=== PATIENT | male | born 1965 | race Two or more races ===

== ENCOUNTER → 2020-03-16 15:08 | Outpatient (BNVA) | payer OTHER, MEDICARE, SELFPAY | PROVIDERS: PCP Student in an Organized Health Care Education/Training Program; Visit Provider Urology | DX: Z76.89 Persons encountering health services in other specified circumstances (principal) ==

== ENCOUNTER → 2020-09-28 13:22 | Outpatient (BNVA) | payer OTHER, MEDICARE, SELFPAY | PROVIDERS: PCP Student in an Organized Health Care Education/Training Program; Visit Provider Nurse Practitioner Family ==

== ENCOUNTER 2020-10-20 12:24 | Outpatient (REF) | payer OTHER, MEDICARE, SELFPAY ==
--- NOTE | ~2020-10-20 | XR_ITS ---
EXAMINATION: XR CHEST CLINICAL INFORMATION: Acute lower respiratory tract infection COMPARISON: Previous chest x-rays most recent May 2019 TECHNIQUE: 2 views of the chest were obtained. FINDINGS: The cardiac and mediastinal contours are stable. The lungs are clear. There is no pleural effusion or pneumothorax. There is mild curvature of the midthoracic spine to the right. XR/XR chest 2V IMPRESSION: No evidence of pneumonia.
[2020-10-20 13:23] LABS: Hematocrit 48.9 % (42-52); Hemoglobin 17.1 g/dl (14.0-18.0); Mean Corpuscular Hemoglobin 33.4 pg (27.0-33.0); Mean Corpuscular Volume 95.5 fL (80-98); Mean Platelet Volume 9.6 fL (9.4-12.4); Platelet Count 257 X10*3/uL (160-400); Red Blood Count 5.12 X10*6/uL (4.60-5.80); Red Cell Distribution Width 11.9 % (11.0-16.0); White Blood Count 6.5 X10*3/uL (4.8-10.8)
[2020-10-20 13:50] LABS: Alanine Aminotransferase 61 U/L (0-40); Albumin Level 4.5 g/dL (3.5-5.0); Alkaline Phosphatase 50 U/L (39-117); Anion Gap 13 (12-20); Aspartate Amino Transferase 60 U/L (5-37); Blood Urea Nitrogen 14 mg/dL (9-16); Calcium 9.7 mg/dL (8.4-10.2); Carbon Dioxide 25 mmol/L (22-29); Chloride 104 mmol/L (96-108); Estimated Glomerular Filt Rate > 60; Glucose Random 104 mg/dL (60-115); Potassium 4.4 mmol/L (3.3-5.1); Sodium 138 mmol/L (135-145); Total Protein 7.9 g/dL (6.5-8.0)
== END 2020-10-20 12:25 | disposition home or self-care (01) ==
LOC: HO.LAB 12:24
PROVIDERS: Absent Provider Emergency Medicine; PCP Student in an Organized Health Care Education/Training Program; Visit Provider Nurse Practitioner Family
DX: Z12.11 Encounter for screening for malignant neoplasm of colon (principal); J22 Unspecified acute lower respiratory infection
CPT/HCPCS: 36415; 71046; 80053; 85027

== ENCOUNTER → 2020-10-28 14:13 | Outpatient (BNVA) | payer OTHER, MEDICARE, SELFPAY | PROVIDERS: PCP Student in an Organized Health Care Education/Training Program; Visit Provider Nurse Practitioner Family ==

== ENCOUNTER 2021-02-04 14:11 | Outpatient (REF) | payer OTHER, MEDICARE, SELFPAY ==
--- NOTE | ~2021-02-04 | CT_ITS ---
EXAMINATION: CT ABDOMEN AND PELVIS WITHOUT CONTRAST CLINICAL INFORMATION: Lower back pain. Question kidney stone. COMPARISON: None TECHNIQUE: Multidetector volumetric imaging was performed from the superior aspect of the liver through the pubic symphysis. Sagittal and coronal reformatted images were obtained on the technologist's workstation. This CT examination was performed using dose optimization techniques as appropriate, variously including the following: *Automated exposure control *Adjustment of mA and/or kV according to patient size (this includes techniques or standardized protocols for targeted exams where dose is matched to indication/reason for exam; i.e. extremities or head) *Use of iterative reconstruction technique DLP: 471 mGy-cm FINDINGS: LUNG BASES: The visualized lung bases are unremarkable. LIVER, GALLBLADDER, AND BILIARY TREE: The liver is normal in size, shape, and attenuation. No focal hepatic lesion or biliary ductal dilatation is present. The gallbladder is unremarkable with no evidence of radiopaque gallstones, gallbladder wall thickening, or obvious pericholecystic inflammatory changes. PANCREAS: Unremarkable. SPLEEN: Unremarkable. ADRENAL GLANDS: Unremarkable. KIDNEYS AND URETERS: The kidneys are normal in size, shape, and attenuation. No hydronephrosis, hydroureter, or calculi seen. There is a 1 cm low-attenuation lesion in the posterior upper pole the right kidney probably representing a cyst. BLADDER: Unremarkable. GASTROINTESTINAL TRACT: The small and large bowel are unremarkable. The appendix is unremarkable. ABDOMINAL WALL: There is a small umbilical hernia containing fat. LYMPH NODES: Normal. VASCULAR: Unremarkable. PELVIC VISCERA: Unremarkable. OSSEOUS STRUCTURES: There is an L1 vertebral body compression fracture. Versus a gallstone. There is degenerative spondylosis at T12-L1. CT/CT abdomen pelvis wo con IMPRESSION: No stone seen. Small right renal cyst. L1 vertebral body compression fracture/Schmorl's node.
== END 2021-02-04 14:12 | disposition home or self-care (01) ==
LOC: HO.CT 14:11
PROVIDERS: Absent Provider Student in an Organized Health Care Education/Training Program; PCP Student in an Organized Health Care Education/Training Program; Visit Provider Emergency Medicine
DX: R10.9 Unspecified abdominal pain (principal)
CPT/HCPCS: 74176

== ENCOUNTER → 2021-02-18 11:09 | Outpatient (BNVA) | payer OTHER, MEDICARE, SELFPAY | PROVIDERS: PCP Student in an Organized Health Care Education/Training Program; Visit Provider Nurse Practitioner Family ==

== ENCOUNTER 2023-03-12 15:00 | Outpatient (REF) | payer OTHER, MEDICARE, SELFPAY ==
[2023-03-12 17:54] LABS: Anion Gap 17 (12-20); Blood Urea Nitrogen 11 mg/dL (9-16); Calcium 9.6 mg/dL (8.4-10.2); Carbon Dioxide 24 mmol/L (22-29); Chloride 101 mmol/L (96-108); Estimated Glomerular Filt Rate > 60; Glucose Random 87 mg/dL (60-115); Potassium 3.7 mmol/L (3.3-5.1); Sodium 138 mmol/L (135-145)
== END 2023-03-12 15:01 | disposition home or self-care (01) ==
LOC: HO.CHCLDS 15:00
PROVIDERS: Visit Provider Internal Medicine
DX: I10 Essential (primary) hypertension (principal)
CPT/HCPCS: 36415; 80048

== ENCOUNTER 2023-03-14 13:38 | Outpatient (REF) | payer OTHER, MEDICARE, SELFPAY ==
--- NOTE | ~2023-03-14 | XR_ITS ---
EXAMINATION: XR CHEST CLINICAL INFORMATION: Right flank pain, right shoulder pain, patient had fall 3 weeks ago. COMPARISON: 10/20/2020 Chest. TECHNIQUE: 2 views of the chest were obtained. FINDINGS: There is no gross pneumothorax. Heart size is normal. Lung volumes are low. No pleural effusion. No gross focal consolidation to suggest pneumonia. Degenerative changes in the thoracic spine. Redemonstration of a lower thoracic vertebral body compression deformity, difficult to characterize due to overlying soft tissues. XR/XR chest 2V IMPRESSION: 1. No evidence of pneumonia. 2. Redemonstration of a lower thoracic vertebral body compression deformity, difficult to characterize due to overlying soft tissues. Dedicated views of the thoracic spine could be considered for further evaluation.
--- NOTE | ~2023-03-14 | XR_ITS ---
EXAMINATION: XR SHOULDER, RIGHT CLINICAL INFORMATION: Flank pain, right shoulder pain. Patient states he had a fall 3 weeks ago, now having right shoulder pain right COMPARISON: None available. TECHNIQUE: 5 views of the right shoulder. FINDINGS: Moderate osteoarthritic changes at the clavicular joint. Glenohumeral alignment preserved. No abnormal soft tissue calcifications identified adjacent to the humeral head. XR/XR shoulder RT min 2V IMPRESSION: Mild degenerative changes acromioclavicular joint. Additional imaging with CT scan or MRI should be considered for better visualization as these modalities are much more sensitive for detection of fracture or other underlying pathology.
== END 2023-03-14 13:39 | disposition home or self-care (01) ==
LOC: HO.HHCX 13:38
PROVIDERS: Visit Provider Internal Medicine
DX: M25.511 Pain in right shoulder (principal); R10.9 Unspecified abdominal pain; R07.81 Pleurodynia
CPT/HCPCS: 71046; 73030

== ENCOUNTER 2023-03-28 11:50 | Outpatient (REF) | payer OTHER, MEDICARE, SELFPAY ==
[2023-03-28 14:17] LABS: MANUAL DIFF FLAG NO
[2023-03-28 14:21] LABS: Basophils Absolute Auto 0.1 X10*3/uL (0.0-0.2); Eosinophils Absolute Auto 0.1 X10*3/uL (0.0-0.4); Eosinophils Percent Auto 2.1 % (0-4); Hematocrit 50.2 % (42.0-52.0); Hemoglobin 17.6 g/dl (14.0-18.0); Imm Gran Abs Auto 0.04 X10*3/uL (0.00-0.03); Imm Gran Pct Auto 0.6 % (0.0-0.4); Lymphocytes Absolute Auto 1.7 X10*3/uL (1.2-4.9); Lymphocytes Percent Auto 26.9 % (20-40); Mean Corpuscular HGB Conc 35.1 g/dl (31.0-36.0); Mean Corpuscular Hemoglobin 34.5 pg (27.0-33.0); Mean Corpuscular Volume 98.4 fL (80.0-98.0); Monocytes Absolute Auto 0.6 X10*3/uL (0.1-1.2); Monocytes Percent Auto 9.7 % (2-11); Neutrophils Absolute Auto 3.8 x10*3/uL (2.0-8.3); Neutrophils Percent Auto 59.7 % (45-73); Platelet Count 290 X10*3/uL (160-400); Red Cell Distribution Width 12.1 % (11.0-16.0); White Blood Count 6.3 X10*3/uL (4.8-10.8)
[2023-03-28 14:31] LABS: Alanine Aminotransferase 131 U/L (0-40); Albumin Level 4.4 g/dL (3.5-5.0); Alkaline Phosphatase 36 U/L (39-117); Aspartate Amino Transferase 67 U/L (5-37); Bilirubin Direct 0.3 mg/dL (0.0-0.5); Bilirubin Total 0.7 mg/dL (0.0-1.0); Cholesterol 171 mg/dL (<200); HDL Cholesterol 33 mg/dL (>40); LDL Cholesterol Calculated 91 mg/dL (<100); Total Protein 7.8 g/dL (6.5-8.0); Triglycerides 238 mg/dL (<150)
== END 2023-03-28 11:51 | disposition home or self-care (01) ==
LOC: HO.CHCLDS 11:50
PROVIDERS: Visit Provider Student in an Organized Health Care Education/Training Program
DX: R10.11 Right upper quadrant pain (principal)
CPT/HCPCS: 36415; 80061; 80076; 85025

== ENCOUNTER 2023-03-29 09:30 | Outpatient (REF) | payer OTHER, MEDICARE, SELFPAY ==
--- NOTE | ~2023-03-29 | US_ITS ---
EXAMINATION: US ABDOMEN LIMITED CLINICAL INFORMATION: Right upper quadrant. COMPARISON: CT abdomen pelvis 02/04/2021 TECHNIQUE: Real-time imaging of the right upper quadrant abdominal viscera. FINDINGS: PANCREAS: Normal. LIVER: The liver is normal in size. The liver contour is normal. There is diffuse increased liver parenchymal echogenicity, consistent with hepatic steatosis. No focal hepatic lesion. There is no intrahepatic biliary duct dilatation seen. GALLBLADDER: The gallbladder is physiologically distended without evidence of stones, sludge, polyps, wall thickening or pericholecystic fluid. COMMON BILE DUCT: Normal in caliber measuring 0.3 cm in diameter. RIGHT KIDNEY: A benign 1.2 cm Bosniak class I renal cyst is once again noted which requires no additional imaging or follow up. No hydronephrosis. No renal calculi or solid focal parenchymal lesions. The kidney measures 11.1 cm in maximum dimension. FREE FLUID: None. US/US abdomen limited IMPRESSION: Hepatic steatosis.
== END 2023-03-29 09:31 | disposition home or self-care (01) ==
LOC: HO.HMGCX 09:30
PROVIDERS: PCP Student in an Organized Health Care Education/Training Program; Visit Provider Student in an Organized Health Care Education/Training Program
DX: R10.11 Right upper quadrant pain (principal)
CPT/HCPCS: 76705

== ENCOUNTER 2023-05-30 11:27 | Outpatient (REF) | payer OTHER, MEDICARE, SELFPAY ==
[2023-06-04 21:08] LABS: Testosterone, Free 125.4 pg/mL (35.0-155.0); Testosterone, Total 685 ng/dL (250-1100)
== END 2023-05-30 11:28 | disposition home or self-care (01) ==
LOC: HO.CHCLDS 11:27
PROVIDERS: Visit Provider Student in an Organized Health Care Education/Training Program
DX: N52.9 Male erectile dysfunction, unspecified (principal)
CPT/HCPCS: 36415; 84402; 84403

== ENCOUNTER 2023-08-28 09:34 | Outpatient (AMB) | payer OTHER, MEDICARE, SELFPAY ==
--- NOTE | 2023-08-28 09:37 | MHC.OFFVIS ---
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 Patient reports ongoing pain for 7 months. He states that his ROM is limited due to causing him pain. Patient informed me when he was at work putting up a omar and he felt a popping sensation in his shoulder. 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 Patient reports ongoing pain for 7 months,01/2023. He states his ROM is limited due to pain. 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 Patient has no history of diabetes mellitus. [facility] Medical History Elevated liver enzymes GERD (gastroesophageal reflux disease) Social History (Updated 08/28/23 @ 09:42 by Donnie Mccall) Household Members: Spouse Alcohol intake: current Alcohol intake frequency: holidays/special occasions only Patient Tobacco Use Status: Never used Tobacco Current occupational status: disabled Current occupation: right hand dominant Review of Systems Const All systems reviewed & are unremarkable except as noted in HPI and below Physical Exam Vital Signs: BMI result Body Mass Index 27.3 Const General: cooperative and no acute distress Orientation/consciousness: patient oriented x3 Resp Effort & Inspection: normal respiratory effort and able to speak in complete sentences Cardio Peripheral pulses: Peripheral pulses 2+ throughout Skin General skin exam: no rashes or lesions noted Neuro General: patient oriented x3 Extrem Other: Right shoulder: Forward flexion and abduction lacking 30 degrees. Able to reach T-12. Pain with cross-body reach. Negative drop arm. Positive empty can. Pain at the impingement arc. NVI. Office Procedures Joint Injection/Drain Joint Injection/Drain Primary Site: right shoulder Prep: site was prepped using aseptic technique, ethochloride spray was applied and injection warnings given Injected: 80 mg of, DepoMedrol, with 8 mL of (2% plain lido ) and in the subcromial space Approach Used: posterolateral Procedure: The patient tolerated the procedure well, but had some pain with the injection and there was some relief with the local anesthesia Coding 02318 - Large joint Procedure code (CPT) selection complete Assessment & Plan Assessment & Plan (1) Painful arc syndrome of right shoulder: Code(s): M75.101 - Unspecified rotator cuff tear or rupture of right shoulder, not specified as traumatic (2) Rotator cuff injury: Code(s): S46.009A - Unspecified injury of muscle(s) and tendon(s) of the rotator cuff of unspecified shoulder, initial encounter Plan Mr. Caba is a 57-year-old right hand dominant male who presents in the office today, as a new patient, for an evaluation of right shoulder pain. Patient reports ongoing pain for 7 months,01/2023. He states his ROM is limited due to pain. 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 Patient has no history of diabetes mellitus. The patient was offered a cortisone injection in the right shoulder with 80 mg of DepoMedrol. The patient was explained the risk, benefits, and alternatives to receiving this injection. After receiving consent for the injection, the patient had the procedure done while in office today. The patient tolerated the procedure well with no complications. A referred was placed for PT. Should he not have relief in 6 weeks we will move forward with an MRI to further evaluate the integrity of the surrounding structures. Follow up will be in 6 weeks either in person or over the phone, which ever the patient prefers, or sooner if needed. X-rays of the right shoulder, obtained on 03/14/2023, revealed: Mild degenerative changes acromioclavicular joint. Orders: Orders PT Evaluation and Treatment Today M75.101 - Unspecified rotator cuff tear or rupture of right shoulder, not specified as traumatic, S46.009A - Unspecified injury of muscle(s) and tendon(s) of the rotator cuff of unspecified shoulder, initial encounter Patient Instructions: Scribed by Bee Colon lpn or medical assistant, for Polly Diane PA-C on 08/28/2023 at 9:47 am, EST. Coding Level of Care Code New Pt Level 4 (69471) Diagnoses Painful arc syndrome of right shoulder M75.101 Rotator cuff injury S46.009A CPT Codes Coding - 73064 Large joint: 59463 - Large joint ([id number])
[2023-08-28 09:39] VITALS: BMI 27.3
== END 2023-08-28 10:21 | disposition home or self-care (01) ==
PROVIDERS: PCP Student in an Organized Health Care Education/Training Program; Visit Provider Physician Assistant
DX: M75.101 Unspecified rotator cuff tear or rupture of right shoulder, not specified as traumatic (principal); S46.001A Unspecified injury of muscle(s) and tendon(s) of the rotator cuff of right shoulder, initial encounter
CPT/HCPCS: 20610; 99204

== ENCOUNTER → 2023-08-28 09:34 | Outpatient (BNVA) | payer OTHER, MEDICARE, SELFPAY | PROVIDERS: PCP Student in an Organized Health Care Education/Training Program; Visit Provider Physician Assistant | DX: M75.101 Unspecified rotator cuff tear or rupture of right shoulder, not specified as traumatic (principal); S46.001A Unspecified injury of muscle(s) and tendon(s) of the rotator cuff of right shoulder, initial encounter | CPT/HCPCS: 20610; J1010; J1040 ==

== ENCOUNTER 2023-09-12 12:09 | Outpatient (REF) | payer OTHER, MEDICARE, SELFPAY ==
[2023-09-13 10:30] LABS: H Pylori Breath Test Negative (Negative)
== END 2023-09-12 12:10 | disposition home or self-care (01) ==
LOC: HO.LNP 12:09
PROVIDERS: PCP Student in an Organized Health Care Education/Training Program; Visit Provider Nurse Practitioner Family
DX: R74.8 Abnormal levels of other serum enzymes (principal); K21.9 Gastro-esophageal reflux disease without esophagitis
CPT/HCPCS: 83013

== ENCOUNTER 2023-09-12 12:09 | Outpatient (AMB) | payer OTHER, MEDICARE, SELFPAY ==
--- NOTE | 2023-09-12 12:10 | MHC.OFFVIS ---
Intake Vital Signs 09/12/23 12:11 Height 5 ft 10 in Weight 198 lb 13.711 oz BMI 28.5 BP 144/98 H Blood Pressure Location Rt brachial Position Sitting Pulse 76 Intake Visit Reasons: continue pantoprazol Intake Note: Patient scheduled appointment for pantoprazole refill. GERD has been really bothersome. 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 Patient does report that they are aggravated by certain food he eats like tomato based sauces, Calixto senna. Patient was encouraged to avoid dietary triggers. He can continue on pantoprazole, however the most important is to avoid food that is making him feel ill. Diarrhea Postprandial diarrhea, most likely aggravated by the type of food he eats. As mentioned above in HPI patient had pasta with red sauce and soon after that he has been having diarrhea. He reports that usually happens with tomato based products. I will see him in 6 weeks to re-evaluate. Patient was encouraged to come in person. Patient will be due for his blood work by then. He is agreeable to plan of care and verbalizes understanding of instructions. His current upper to ask questions and all questions answered. ? Thank you for allowing me to participate in his care Plan Medications New methylcellulose (laxative) (Citrucel) take it with full glass of water 500 mg PO DAILY 30 tabs 2RF K59.00 TODAY'S VISIT Patient is here today for requested visit. Patient ran out of pantoprazole few months ago and his symptoms of acid reflux are severe. Patient was last seen in January of 2021. Patient will did not follow-up in the office as he moved with his family to [place] for 2 years. Recently came back last fall and began to have epigastric pain. Patient reports that he has postprandial epigastric pain no matter what he eats. Patient states that he is trying to avoid dietary triggers, however he continues to have discomfort. History of H pylori in the past with treatment few years back. One episode of epigastric pain with nausea, vomiting and diarrhea back in [place]. Patient has not seek any treatment. Just wait it out till he got better. Currently patient also is reporting postprandial abdominal bloating occasional loose stools, however more frequent constipation that usual. Patient denies any melena, hematochezia, unintentional weight loss or ribbon like stools. Patient admits to gaining over 10 lb since he got to [place] from [place].. Patient denies drinking alcohol at this time. History of heavy drinking, however stopped few years ago. Previously worked up for hepatic steatosis by other provider in this GI office. 03/28/23 11:53 AST 67 H ALT 131 H Alkaline Phosphata se 36 L PFS Medical History Elevated liver enzymes GERD (gastroesophageal reflux disease) Social History (Updated 08/28/23 @ 09:42 by Donnie Mccall) Household Members: Spouse Alcohol intake: current Alcohol intake frequency: holidays/special occasions only Patient Tobacco Use Status: Never used Tobacco Current occupational status: disabled Current occupation: right hand dominant Review of Systems Const Denies weight gain and Denies weight loss ENT Reports no additional complaints, Denies dysphagia and Denies odynophagia Card Reports no additional complaints Resp Reports no additional complaints GI Reports abdominal pain (Epigastric), Denies belching, Denies melena, Reports bloating, Denies change in bowel habits, Reports constipation, Denies dysphagia, Denies excessive flatus, Denies dyspepsia, Reports heartburn, Denies diarrhea, Reports loose stools, Denies nausea, Denies odynophagia and Denies vomiting Reports no additional complaints Musc Reports no additional complaints Neuro Reports no additional complaints Psych Reports no additional complaints Endo Reports no additional complaints Physical Exam Vital Signs: Last Vital Signs Pulse 76 09/12/23 12:11 BP 144/98 H 09/12/23 12:11 BMI result Body Mass Index 28.5 Const General: healthy appearing, no acute distress and well developed Nutritional Appearance: well nourished Orientation/consciousness: patient oriented x3 Resp Effort & Inspection: normal respiratory effort, able to speak in complete sentences, no tracheal deviation and symmetric chest movement Auscultation: clear to auscultation bilaterally Cardio Rate: regular rate GI Inspection: Yes normal to inspection and No distended Palpation (GI): Soft to palpation, not firm, nontender and No hepatosplenomegaly present Auscultation: normal bowel sounds General: Yes no CVA tenderness Back/Spine/Pelvis Back: no CVA tenderness Skin General skin exam: elasticity normal, turgor normal and dry skin Neuro General: patient oriented x3 Psych Appearance: grossly normal Mental Status: mental status grossly normal Assessment & Plan Assessment & Plan (1) Elevated liver enzymes: Code(s): R74.8 - Abnormal levels of other serum enzymes (2) GERD (gastroesophageal reflux disease): Code(s): K21.9 - Gastro-esophageal reflux disease without esophagitis Qualifiers: Esophagitis presence: without esophagitis Qualified Code(s): K21.9 - Gastro-esophageal reflux disease without esophagitis (3) Diarrhea: Code(s): R19.7 - Diarrhea, unspecified Qualifiers: Diarrhea type: functional diarrhea Qualified Code(s): K59.1 - Functional diarrhea (4) IBS (irritable bowel syndrome): Code(s): K58.9 - Irritable bowel syndrome without diarrhea Qualifiers: Irritable bowel syndrome type: with both diarrhea and constipation Qualified Code(s): K58.2 - Mixed irritable bowel syndrome Plan Patient reports epigastric pain will order lipase, H pylori testing in the office today. Will treat empirically if positive. Will check transglutaminase to rule out celiac. Check vitamin B12, folate and vitamin-D level. Patient does report to have frequent loose stools. Will check GI panel. Patient did had episode of 5 day diarrhea back in [place]. Patient feels like he is constipated, however he continues to have loose stools. He does not feel like he empties completely. Start Citrucel in the morning and senna at night time. Will refill his pantoprazole. I will see patient in 2 months, sooner on as needed basis. Patient is agreeable to this plan and verbalizes understanding of instructions. He was given the opportunity to ask questions and all questions answered. Thank you for allowing me to participate in his care Orders: Orders Transglutaminase Ab IgG Today R10.9 - Unspecified abdominal pain Transglutaminase IgA Today R10.9 - Unspecified abdominal pain Vitamin B12 and Folate Today R19.7 - Diarrhea, unspecified Lipase Today R10.9 - Unspecified abdominal pain H Pylori Breath Test Today K21.9 - Gastro-esophageal reflux disease without esophagitis TSH reflex Free T4 Today K59.00 - Constipation, unspecified Vitamin D 25-OH (D2 and D3) Today E55.9 - Vitamin D deficiency, unspecified Liver Panel Today R74.01 - Elevation of levels of liver transaminase levels GI Panel Today R19.7 - Diarrhea, unspecified Medications: New methylcellulose (laxative) (Citrucel) 500 mg PO DAILY 60 tabs 2RF sennosides (Natural Senna Laxative) 17.2 mg (2 x 8.6 mg) PO BEDTIME 60 tabs 3RF constipation K59.00 - Constipation, unspecified Refilled pantoprazole 40 mg PO DAILY 90 tabs 2RF K21.9 - Gastro-esophageal reflux disease without esophagitis Coding Level of Care Code Est Pt Level 4 (11700) Diagnoses Elevated liver enzymes R74.8 Gastroesophageal reflux disease without esophagitis K21.9 Esophagitis presence: without esophagitis Functional diarrhea K59.1 Diarrhea type: functional diarrhea Irritable bowel syndrome with both constipation and diarrhea K58.2 Irritable bowel syndrome type: with both diarrhea and constipation Time Spent (min) 40 Comment 25 minutes spent with patient and additional 15 minutes spent reviewing his records
[2023-09-12 12:11] VITALS: BP 144/98; PULSE 76; BMI 28.5
== END 2023-09-12 12:59 | disposition home or self-care (01) ==
PROVIDERS: PCP Student in an Organized Health Care Education/Training Program; Visit Provider Nurse Practitioner Family
DX: R74.8 Abnormal levels of other serum enzymes (principal); K21.9 Gastro-esophageal reflux disease without esophagitis; K59.1 Functional diarrhea; K58.2 Mixed irritable bowel syndrome
CPT/HCPCS: 99214

== ENCOUNTER 2023-09-17 09:41 | Outpatient (REF) | payer OTHER, MEDICARE, SELFPAY ==
[2023-09-17 11:04] LABS: Alanine Aminotransferase 54 U/L (0-40); Albumin Level 4.4 g/dL (3.5-5.0); Alkaline Phosphatase 42 U/L (39-117); Aspartate Amino Transferase 35 U/L (5-37); Bilirubin Direct 0.4 mg/dL (0.0-0.5); Bilirubin Total 1.1 mg/dL (0.0-1.0); Lipase 33 U/L (8-78); Total Protein 7.9 g/dL (6.5-8.0)
[2023-09-17 11:10] LABS: TSH reflex Free T4 1.77 uIU/mL (0.32-4.0)
[2023-09-17 11:18] LABS: Folate 8.9 ng/mL (> or = 4.0); Vitamin B12 239 pg/mL (200-900)
[2023-09-19 14:49] LABS: Transglutaminase IgA <1.0 U/mL
[2023-09-21 15:33] LABS: Vitamin D 25-OH, D2 <4 ng/mL; Vitamin D 25-OH, D3 13 ng/mL; Vitamin D 25-OH, Total 13 ng/mL (30-100)
== END 2023-09-17 09:42 | disposition home or self-care (01) ==
LOC: HO.LAB 09:41
PROVIDERS: PCP Student in an Organized Health Care Education/Training Program; Visit Provider Nurse Practitioner Family
DX: R10.9 Unspecified abdominal pain (principal); E55.9 Vitamin D deficiency, unspecified; R19.7 Diarrhea, unspecified; K59.00 Constipation, unspecified; R74.01 Elevation of levels of liver transaminase levels
CPT/HCPCS: 36415; 80076; 82306; 82607; 82746; 83690; 84443; 86364

== ENCOUNTER 2023-09-18 11:27 | Outpatient (REF) | payer OTHER, MEDICARE, SELFPAY ==
[2023-09-18 14:22] LABS: Adenovirus F 40/41 Not Detected (Not Detect.); Astrovirus Not Detected (Not Detect.); Campylobacter Not Detected (Not Detect.); Cryptosporidium Not Detected (Not Detect.); Cyclospora cayetanensis Not Detected (Not Detect.); E. coli EAEC Not Detected (Not Detect.); E. coli EPEC Not Detected (Not Detect.); E. coli ETEC Not Detected (Not Detect.); E. coli STEC Not Detected (Not Detect.); Entamoeba histolytica Not Detected (Not Detect.); Giardia lamblia Not Detected (Not Detect.); Norovirus GI/GII Not Detected (Not Detect.); Plesiomonas shigelloides Not Detected (Not Detect.); Rotavirus A Not Detected (Not Detect.); Salmonella Not Detected (Not Detect.); Sapovirus Not Detected (Not Detect.); Shigella sp./EIEC Not Detected (Not Detect.); Vibrio Not Detected (Not Detect.); Vibrio Cholerae Not Detected (Not Detect.); Yersinia enterocolitica Not Detected (Not Detect.)
== END 2023-09-18 11:28 | disposition home or self-care (01) ==
LOC: HO.LNP 11:27
PROVIDERS: Visit Provider Nurse Practitioner Family
DX: R19.7 Diarrhea, unspecified (principal)
CPT/HCPCS: 87507

== ENCOUNTER 2023-09-19 09:49 | Outpatient (AMB) | payer OTHER, MEDICARE, SELFPAY ==
--- NOTE | 2023-09-19 10:23 | MHC.OFFVIS ---
Intake Visit Reasons: Erectile Dysfunction Intake Note: New Patient presents for initial visit for erectile dysfunction Urology Medications: tadalafil prn Blood Thinner: none Electrotype Finisher Required: No Accompanied by: Self / Same As Patient Allergies none Allergy (Unknown, Uncoded 09/19/23 21:10) Unknown Medication List - Last Reconciled 09/19/23 by NINA Rojo albuterol sulfate 90 mcg/actuation inhalation ibuprofen 800 mg PO TID lisinopril 20 mg PO QAM magnesium oxide 200 mg PO BEDTIME methylcellulose (laxative) (Citrucel) 500 mg PO DAILY pantoprazole 40 mg PO DAILY sennosides (Natural Senna Laxative) 17.2 mg (2 x 8.6 mg) PO BEDTIME sildenafil (Viagra) 100 mg PO DAILY PRN 90 days HPI Comments Details: Jamil is a 58-year-old male patient of Dr. Shankar. He has a past medical history of hypertension, GERD, and elevated liver enzymes. He presents to the office today as a new patient for erectile dysfunction. In discussion with the patient today he reports having follow-up is PCP approximately 4 months ago for erectile dysfunction he has been experiencing at which time urology referral was made for further assessment evaluation. He reports previously being on Cialis for issues with erectile dysfunction however feels symptoms have worsened over the last 4 months despite p.r.n. Cialis prior to sexual activity. He reports feeling he is not able to obtain and or maintain erections. In review of patient's chart it appears testosterone was ordered for further assessment evaluation. These results reviewed with the patient today. Testosterone 06/20 685, free testosterone 125.4 He otherwise denies any bothersome urinary issues or concerns. He denies urinary urgency, urinary frequency, incontinence, nocturia, hematuria, dysuria, foul smelling urine, changes to urinary stream, flank pain, fever, and or chills. He is happy with his current voiding parameters. When asked he denies any previous trauma to his penis, testicles, and or scrotum. Discussed at length potential causes for erectile dysfunction. He otherwise offers no other issues or concerns at this time. [facility] Medical History Elevated liver enzymes GERD (gastroesophageal reflux disease) Social History Household Members: Spouse Alcohol intake: current Alcohol intake frequency: holidays/special occasions only Patient Tobacco Use Status: Never used Tobacco Current occupational status: disabled Current occupation: right hand dominant Review of Systems Const All systems reviewed & are unremarkable except as noted in HPI and below Physical Exam Const General: cooperative, healthy appearing, comfortable, no acute distress, well developed, alert and awake Orientation/consciousness: patient oriented x3 Limitations: no limitations HEENT Head: Yes normal to inspection, Yes normocephalic and Yes atraumatic Ears: hearing grossly normal bilaterally Eyes General: appearance normal, both eyes and all related structures Neck Neck: Yes normal visual inspection and Yes trachea midline Chest Chest palpation & inspection: normal inspection of the chest Resp Effort & Inspection: normal respiratory effort and able to speak in complete sentences Cardio Rate: regular rate GI Inspection: Yes normal to inspection General: Yes no CVA tenderness Back/Spine/Pelvis Back: no CVA tenderness Skin General skin exam: no rashes or lesions noted Neuro General: patient oriented x3 Extrem General: Yes normal to inspection Psych Appearance: grossly normal and well kempt Mental Status: mental status grossly normal Speech and movement: Normal speech and movement present and Clear speech present Affect: normal affect Attitude: cooperative Thought process: Normal thought process present Thought content: Normal thought content present Insight: Fair insight present (Psych) Judgement: Fair judgement present (Psych) Results AMB Urinalysis, Automated UA Leukoctes 15 Huong/uL Last Edit by [facility] Pritesh on 09/19/23 10:31 UA Nitrite Negative Last Edit by [employer] on 09/19/23 10:31 UA Urobilinogen 0.2 mg/dL Last Edit by [employer] on 09/19/23 10:31 UA Protein 15 mg/dL Last Edit by [employer] on 09/19/23 10:31 UA pH 6.0 Last Edit by [employer] on 09/19/23 10:31 UA Blood 0 Moshe/uL Last Edit by [employer] on 09/19/23 10:31 UA Specific [place] 1.020 Last Edit by [employer] on 09/19/23 10:31 UA Ketone Negative Last Edit by [employer] on 09/19/23 10:31 UA Bilirubin 0 mg/dL Last Edit by Rafaela Jonas on 09/19/23 10:31 UA Glucose 0 mg/dL Last Edit by Rafaela Jonas on 09/19/23 10:31 Results Reviewed Results Reviewed: Laboratory Last Values Urine pH (Auto) 6.0 09/19/23 10:30 Specific [place] (Auto) 1.020 09/19/23 10:30 Urine Protein (Auto) 15 mg/dL 09/19/23 10:30 Glucose (UA)(Auto) 0 mg/dL 09/19/23 10:30 Urine Ketones (Auto) Negative 09/19/23 10:30 Urine Blood (Auto) 0 Moshe/uL 09/19/23 10:30 Urine Nitrite (Auto) Negative 09/19/23 10:30 Urine Bilirubin (Auto) 0 mg/dL 09/19/23 10:30 Urine Urobilinogen (Auto) 0.2 mg/dL 09/19/23 10:30 Leukocyte Esterase (Auto) 15 Huong/uL 09/19/23 10:30 Assessment & Plan Assessment & Plan (1) Erectile dysfunction: Code(s): N52.9 - Male erectile dysfunction, unspecified Category: Medical Plan In office urinalysis results reviewed with the patient today; as noted above. Discussed at length potential causes for erectile dysfunction. Discussed further treatment options at length. Recent testosterone results reviewed with the patient today; as noted above. Will obtain PSA for further assessment evaluation. Stop Cialis. Start Viagra as discussed and prescribed. Discussed at length lifestyle modifications to assist with erectile dysfunction. Patient currently denies any bothersome urinary issues or concerns. Patient reports be happy with current voiding parameters. Follow-up in 3 months with lab to be completed prior; or sooner with any issues, concerns, and or questions. Orders: Orders AMB Urinalysis Automated Today Z13.9 - Encounter for screening, unspecified Prostate Specific Antigen Today N40.0 - Benign prostatic hyperplasia without lower urinary tract symptoms Medications: New sildenafil (Viagra) administer 30 minutes to 1 hour prior to sexual activity [id number] [facility] [id number] Member [id number] 100 mg PO DAILY 90 days PRN 30 tabs 0RF sexual activity Patient Instructions: The patient had an opportunity to ask questions regarding the treatment plan. All questions were answered. Physical exam, labs, and imaging were discussed and reviewed in detail. As well as risks, benefits, and discussion of treatment choices. No major barriers to understanding were identified. The patient expressed understanding and agreement with the above treatment plan. The patient was made aware they should contact our office by phone for worsening of their current condition, the appearance of new symptoms, or with any questions or concerns. Compliance is encouraged with any medications and follow up testing that is ordered. It is a privilege to be allowed the opportunity to participate in? your urological care.? Again, if you have any questions or concerns If you have any questions or concerns please do not hesitate to contact me. The office is [phone]. This note is constructed using voice recognition software. While every effort has been made to ensure accuracy reception errors may have been included. Yours sincerely, NINA Rojo Coding Level of Care Code New Pt Level 4 (33800) Diagnoses Erectile dysfunction N52.9
== END 2023-09-19 10:49 | disposition home or self-care (01) ==
PROVIDERS: PCP Student in an Organized Health Care Education/Training Program; Visit Provider Nurse Practitioner Family
DX: N52.9 Male erectile dysfunction, unspecified (principal)
CPT/HCPCS: 99204

== ENCOUNTER → 2023-09-19 09:49 | Outpatient (BNVA) | payer OTHER, MEDICARE, SELFPAY | PROVIDERS: PCP Student in an Organized Health Care Education/Training Program; Visit Provider Nurse Practitioner Family | DX: N52.9 Male erectile dysfunction, unspecified (principal) | CPT/HCPCS: 81003 ==

== ENCOUNTER 2023-09-21 08:34 | Outpatient (REF) | payer OTHER, MEDICARE, SELFPAY | END 2023-09-21 08:35 | disposition home or self-care (01) | LOC: HO.LAB 08:34 | PROVIDERS: PCP Student in an Organized Health Care Education/Training Program; Visit Provider Nurse Practitioner Family | DX: Z12.5 Encounter for screening for malignant neoplasm of prostate (principal); N40.0 Benign prostatic hyperplasia without lower urinary tract symptoms | CPT/HCPCS: 36415; 84153 ==

== ENCOUNTER 2023-11-07 11:41 | Outpatient (AMB) | payer OTHER, MEDICARE, SELFPAY ==
--- NOTE | 2023-11-07 11:46 | A.OFFVIS_ITS ---
Vital Signs 11/07/23 11:51 Height 5 ft 10 in Weight 197 lb 8.547 oz BMI 28.3 BP 112/76 Blood Pressure Location Rt brachial Position Sitting Pulse 54 Pulse Source Pulse Oximeter Pulse Oximetry (%) 98 Oxygen Delivery Method Room Air Intake Visit Reasons: 2 month follow up Intake Note: Jamil presents in office today for a scheduled 2 mos FUV. CC; Pt had meds and labs ordered for them at their last visit. Pt reports that the medications Rx'd seem to be working OK without any noticeable complications. Pt reports that he did also complete the lab orders as instructed. Certified Nursing Attendant Required: No Allergies No Known Allergies Allergy (Verified 11/07/23 11:50) HPI HPI 2 month follow up: Details: LAST VISIT: Elevated liver enzymes GERD (gastroesophageal reflux disease) Diarrhea IBS (irritable bowel syndrome) Plan Patient reports epigastric pain will order lipase, H pylori testing in the office today. Will treat empirically if positive. Will check transglutaminase to rule out celiac. Check vitamin B12, folate and vitamin-D level. Patient does report to have frequent loose stools. Will check GI panel. Patient did had episode of 5 day diarrhea back in [place]. Patient feels like he is constipated, however he continues to have loose stools. He does not feel like he empties completely. Start Citrucel in the morning and senna at night time. Will refill his pantoprazole. I will see patient in 2 months, sooner on as needed basis. Patient is agreeable to this plan and verbalizes understanding of instructions. He was given the opportunity to ask questions and all questions answered. ? Thank you for allowing me to participate in his care Orders Orders Transglutaminase Ab IgG Today R10.9 Transglutaminase IgA Today R10.9 Vitamin B12 and Folate Today R19.7 Lipase Today R10.9 H Pylori Breath Test Today K21.9 TSH reflex Free T4 Today K59.00 Vitamin D 25-OH (D2 and D3) Today E55.9 Liver Panel Today R74.01 GI Panel Today R19.7 Medications New methylcellulose (laxative) (Citrucel) 500 mg PO DAILY 60 tabs 2RF sennosides (Natural Senna Laxative) 17.2 mg (2 x 8.6 mg) PO BEDTIME 60 tabs 3RF constipation K59.00 Refilled pantoprazole 40 mg PO DAILY 90 tabs 2RF K21.9 TODAY'S VISIT Patient is here today for follow-up and to discuss lab results. Patient's GI panel was normal. Liver enzymes improved. Mild elevation in ALT. Patient reports that he changed his diet, eating healthier, avoiding food high in fat, avoiding carbs. Eating more vegetables. Patient reports that after he saw me he was taking Citrucel and senna, however now that he changed his diet he is able to move his bowels better. Patient increase fiber in his diet. Patient denies any dyspepsia, dysphagia or odynophagia. Denies melena, hematochezia, unintentional weight loss or ribbon like stools. Negative H pylori breath test. Overall patient reports that he has been feeling much better. [facility] Medical History Elevated liver enzymes GERD (gastroesophageal reflux disease) Social History Household Members: Spouse Alcohol intake: current Alcohol intake frequency: holidays/special occasions only Patient Tobacco Use Status: Never used Tobacco Current occupational status: disabled Current occupation: right hand dominant Review of Systems Const Denies weight gain and Denies weight loss ENT Reports no additional complaints, Denies dysphagia and Denies odynophagia Card Reports no additional complaints Resp Reports no additional complaints GI Denies abdominal pain, Denies belching, Denies melena, Denies bloating, Denies change in bowel habits, Denies dysphagia, Denies excessive flatus, Denies dyspepsia, Denies heartburn, Denies diarrhea, Denies loose stools, Denies nausea, Denies odynophagia and Denies vomiting Reports no additional complaints Musc Reports no additional complaints Neuro Reports no additional complaints Psych Reports no additional complaints Endo Reports no additional complaints Physical Exam Vital Signs: Last Vital Signs Pulse 54 11/07/23 11:51 BP 112/76 11/07/23 11:51 Pulse Ox 98 11/07/23 11:51 Oxygen Delivery Method Room Air 11/07/23 11:51 BMI result Body Mass Index 28.3 Const General: healthy appearing, no acute distress and well developed Nutritional Appearance: well nourished Orientation/consciousness: patient oriented x3 Resp Effort & Inspection: normal respiratory effort, able to speak in complete sentences, no tracheal deviation and symmetric chest movement Auscultation: clear to auscultation bilaterally Cardio Rate: regular rate GI Inspection: Yes normal to inspection and No distended Palpation (GI): Soft to palpation, not firm, nontender and No hepatosplenomegaly present Auscultation: normal bowel sounds General: Yes no CVA tenderness Back/Spine/Pelvis Back: no CVA tenderness Skin General skin exam: elasticity normal, turgor normal and dry skin Neuro General: patient oriented x3 Psych Appearance: grossly normal Mental Status: mental status grossly normal Results Reviewed Results Reviewed: Laboratory Tests 09/17/23 09:53 Total Bilirubin 1.1 H Direct Bilirubin 0.4 AST 35 ALT 54 H Alkaline Phosphatase 42 Lipase 33 Vitamin B12 239 25-OH Vitamin D Total 13 L Folate 8.9 TSH 1.77 Tiss Transglutamin IgG 3.0 Tiss Transglutamin IgA <1.0 Laboratory Tests 09/12/23 12:47 H. pylori Breath Test Negative GI PANEL NORMAL Assessment & Plan Assessment & Plan (1) Elevated liver enzymes: Code(s): R74.8 - Abnormal levels of other serum enzymes Category: Medical (2) GERD (gastroesophageal reflux disease): Code(s): K21.9 - Gastro-esophageal reflux disease without esophagitis Category: Medical Qualifiers: Esophagitis presence: without esophagitis Qualified Code(s): K21.9 - Gastro-esophageal reflux disease without esophagitis (3) IBS (irritable bowel syndrome): Code(s): K58.9 - Irritable bowel syndrome without diarrhea Qualifiers: Irritable bowel syndrome type: without diarrhea Qualified Code(s): K58.9 - Irritable bowel syndrome without diarrhea Plan Patient continues occasional postprandial abdominal bloating, dependent on what he eats. List of food recommended as well as list of food to avoid given to patient. Patient will recheck his liver enzymes in 6 months. Will order liver elastography ultrasound. Continue taking pantoprazole daily. Avoid dietary triggers and late night snacking. Staying upright for minimum 3 hours after meals discussed with patient. I will see patient in 6 months, sooner on as needed basis. He is agreeable to this plan and verbalizes understanding of instructions. He was given the opportunity to ask questions and all questions answered. Thank you for allowing me to participate in his care Orders: Orders US abdomen suazo w elastography Today R74.01 - Elevation of levels of liver transaminase levels Liver Panel 05/01/24 R74.01 - Elevation of levels of liver transaminase levels Medications: Discontinued methylcellulose (laxative) (Citrucel) Discontinued Reason: Patient no longer taking 500 mg PO DAILY 60 tabs 2RF sennosides (Natural Senna Laxative) Discontinued Reason: Patient no longer taking 17.2 mg (2 x 8.6 mg) PO BEDTIME 60 tabs 3RF constipation K59.00 - Constipation, unspecified Coding Level of Care Code Est Pt Level 4 (40147) Diagnoses Elevated liver enzymes R74.8 Gastroesophageal reflux disease without esophagitis K21.9 Esophagitis presence: without esophagitis Irritable bowel syndrome without diarrhea K58.9 Irritable bowel syndrome type: without diarrhea Time Spent (min) 35 Comment 20 minutes spent with patient and additional 15 minutes spent reviewing his records
[2023-11-07 11:51] VITALS: BP 112/76; PULSE 54; O2SAT 98; BMI 28.3
== END 2023-11-07 12:15 | disposition home or self-care (01) ==
PROVIDERS: PCP Student in an Organized Health Care Education/Training Program; Visit Provider Nurse Practitioner Family
DX: R74.8 Abnormal levels of other serum enzymes (principal); K21.9 Gastro-esophageal reflux disease without esophagitis; K58.9 Irritable bowel syndrome, unspecified
CPT/HCPCS: 99214

== ENCOUNTER → 2023-11-07 11:41 | Outpatient (BNVA) | payer OTHER, MEDICARE, SELFPAY | PROVIDERS: PCP Student in an Organized Health Care Education/Training Program; Visit Provider Nurse Practitioner Family ==

== ENCOUNTER 2023-11-27 10:33 | Outpatient (REF) | payer OTHER, MEDICARE, SELFPAY ==
--- NOTE | ~2023-11-27 | US_ITS ---
EXAMINATION: US ABDOMEN LIMITED WITH LIVER ELASTOGRAPHY CLINICAL INFORMATION: Elevated transaminase. COMPARISON: Ultrasound and elastoplasty abdomen 05/20/2019, CT abdomen and pelvis 02/04/2021. TECHNIQUE: Real-time imaging of the abdominal viscera. Noninvasive ultrasound liver fibrosis assessment is performed using Karis ElastPQ point quantification shear wave elastography (2D-SWE) with a C5-2 MHz transducer. Multiple elastography samples are obtained. FINDINGS: PANCREAS: The visualized pancreatic head and body are normal in appearance. The remainder of the pancreas is obscured from visualization by the overlying bowel gas. LIVER: The liver demonstrates normal size and contour but markedly increased echogenicity consistent with steatosis. There is a benign 5 mm cyst in the left lobe of the liver. No solid focal lesion or intrahepatic biliary duct dilatation. The right lobe measures 14.4 cm in length. The left lobe measures 10.2 cm in length. Portal flow is towards the liver (hepatopetal). Shear wave liver elastography median stiffness is 1.84 m/s (reference: normal median stiffness is 1.3 m/s or less). Prior exam was 1.28 m/s. IQR/median stiffness to assess sampling precision is 0.15 (reference: good quality data set is IQR/median stiffness of 0.15 or less). GALLBLADDER: The gallbladder is physiologically distended without evidence of stones, sludge, polyps, wall thickening or pericholecystic fluid. COMMON BILE DUCT: Normal in caliber measuring 0.3 cm in diameter. RIGHT KIDNEY: A benign 1.7 cm septated Bosniak class II renal cyst is noted which requires no additional imaging or follow up. Previously the septation was not seen. No solid renal masses are seen. No hydronephrosis. No renal calculi. The kidney measures 11.3 cm in maximum dimension. FREE FLUID: None. US/US abdomen suazo w elastography IMPRESSION: 1. Echogenic liver consistent with steatosis. 2. Liver elastography: Measurements are suggestive of compensated advanced chronic liver disease but need further test for confirmation. When compared with prior exam, there is a statistically significant increase in liver stiffness (increase at least 10%). REFERENCE: Society of Radiologists in Ultrasound Liver Stiffness Thresholds (2019): LIVER STIFFNESS THRESHOLDS: *Liver Stiffness equal or less than 1.3 m/s: High probability of being normal. *Liver Stiffness less than 1.7 m/s: In the absence of other known clinical signs, rules out compensated advanced chronic liver disease. *Liver Stiffness 1.7-2.1 m/s: Suggestive of compensated advanced chronic liver disease but need further test for confirmation. *Liver Stiffness over 2.1 m/s: Rules in compensated advanced chronic liver disease. *Liver Stiffness over 2.4 m/s: Suggestive of clinically significant portal hypertension. QUALITY OF DATA SET: *IQR/Median value equal or less than 0.15 implies a quality data set. *IQR/Median value over 0.15 implies a poor quality data set. SIGNIFICANT CHANGE FROM PRIOR EXAM: Significant change if liver stiffness measurement is 10% or greater from prior exam. OTHER CONSIDERATIONS: The stage of liver fibrosis may be overestimated in the setting of acute hepatitis, liver inflammation, elevated liver function tests, hepatic vascular congestion, obstructive cholestasis, non-fasting state, and infiltrative diseases such as amyloidosis and lymphoma. In some patients with NAFLD, the liver stiffness thresholds for compensated advanced chronic liver disease may be lower. In causes other than viral hepatitis and NAFLD, liver stiffness thresholds are not well established.
== END 2023-11-27 10:34 | disposition home or self-care (01) ==
LOC: HO.US 10:33
PROVIDERS: Visit Provider Nurse Practitioner Family
DX: R74.01 Elevation of levels of liver transaminase levels (principal)
CPT/HCPCS: 76705; 76981

== ENCOUNTER 2023-12-05 06:52 | Outpatient (REF) | payer OTHER, MEDICARE, SELFPAY ==
[2023-12-05 08:10] LABS: Alanine Aminotransferase 45 U/L (0-40); Albumin Level 4.2 g/dL (3.5-5.0); Alkaline Phosphatase 35 U/L (39-117); Anion Gap 11 (12-20); Aspartate Amino Transferase 27 U/L (5-37); Bilirubin Direct 0.2 mg/dL (0.0-0.5); Bilirubin Total 0.5 mg/dL (0.0-1.0); Blood Urea Nitrogen 17 mg/dL (9-16); Calcium 9.6 mg/dL (8.4-10.2); Carbon Dioxide 25 mmol/L (22-29); Chloride 107 mmol/L (96-108); Cholesterol 178 mg/dL (<200); Estimated Glomerular Filt Rate > 60; Glucose Random 112 mg/dL (60-115); HDL Cholesterol 35 mg/dL (>40); LDL Cholesterol Calculated 112 mg/dL (<100); Potassium 4.2 mmol/L (3.3-5.1); Sodium 139 mmol/L (135-145); Total Protein 7.2 g/dL (6.5-8.0); Triglycerides 155 mg/dL (<150)
[2023-12-06 08:26] LABS: ~HepC Num1 0.23 S/CO (0.00-0.79); ~Hepatitis C Antibody Nonreactive (Nonreactive)
[2023-12-07 21:33] LABS: HIV RNA PCR Qn Copies Not Detected Copies/mL; HIV RNA PCR Qn Log Copies Not Detected Log cps/mL
[2023-12-11 19:53] LABS: Alk.Phos Iso. Macrohepatic 0 % (<=0); Alk.Phos Isoenzymes Bone 74 % (28-66); Alk.Phos Isoenzymes Intest 0 % (1-24); Alk.Phos Isoenzymes Liver 26 % (25-69); Alk.Phos Isoenzymes Placental 0 % (<=0); Alk.Phos Isoenzymes Total 33 U/L (35-144)
== END 2023-12-05 06:53 | disposition home or self-care (01) ==
LOC: HO.LAB 06:52
PROVIDERS: PCP Student in an Organized Health Care Education/Training Program; Visit Provider Nurse Practitioner Family
DX: I10 Essential (primary) hypertension (principal); R74.8 Abnormal levels of other serum enzymes
CPT/HCPCS: 36415; 80048; 80061; 80076; 84080; 86803; 87536; 87900

== ENCOUNTER 2023-12-19 09:48 | Outpatient (AMB) | payer OTHER, MEDICARE, SELFPAY ==
--- NOTE | 2023-12-19 09:54 | A.OFFVIS_ITS ---
Intake Visit Reasons: 3m/PSA Intake Note: Patient presents for follow up visit on: erectile dysfunction Urology Medications: Sildenafil Blood Thinner: none Safety And Health Manager Required: No Accompanied by: Self / Same As Patient Allergies No Known Allergies Allergy (Verified 12/19/23 10:06) HPI Comments Details: Jamil is a 58-year-old male patient of Dr. Shankar. He has a past medical history of hypertension, GERD, and elevated liver enzymes. He presents to the office today for follow-up. Of note, patient was seen approximately 3 months ago as a new patient for erectile dysfunction at which time he was started on as needed Viagra. In discussion with the patient today he reports having trialed Viagra 1 time since his last office visit here and did not find it helpful. He reports previously trialing as needed Cialis and did not find this helpful either. Recent PSA results reviewed with the patient today. PSA 09/18 2.5 06/20: Testosterone 685, free testosterone 125.4 He otherwise denies any bothersome urinary issues or concerns. He denies urinary urgency, urinary frequency, incontinence, hematuria, dysuria, foul smelling urine, changes to urinary stream, flank pain, fever, and or chills. He does report episodes of nocturia up to 3 times per night however does not find this bothersome and feels he is managing this independently. He is happy with his current voiding parameters. When asked he denies any previous trauma to his penis, testicles, and or scrotum. Discussed at length potential causes for erectile dysfunction. Discussed further treatment options for erectile dysfunction to include penile pump/ring, penile injection therapy and or prosthesis risks and benefits of these interventions were discussed at length. He is vague when describing symptoms of erectile dysfunction. He otherwise offers no other issues or concerns at this time. [facility] Medical History Elevated liver enzymes GERD (gastroesophageal reflux disease) Social History Household Members: Spouse Alcohol intake: current Alcohol intake frequency: holidays/special occasions on ly Patient Tobacco Use Status: Never used Tobacco Current occupational status: disabled Current occupation: right hand dominant Results AMB Urinalysis, Automated UA Leukoctes 0 Huong/uL Last Edit by Rafaela Jonas on 12/19/23 10:10 UA Nitrite Negative Last Edit by Rafaela Jonas on 12/19/23 10:10 UA Urobilinogen 0.2 mg/dL Last Edit by Rafaela Jonas on 12/19/23 10:10 UA Protein 0 mg/dL Last Edit by Rafaela Jonas on 12/19/23 10:10 UA pH 6.0 Last Edit by Rafaela Jonas on 12/19/23 10:10 UA Blood 0 Moshe/uL Last Edit by Rafaela Jonas on 12/19/23 10:10 UA Specific [place] 1.015 Last Edit by Rafaela Jonas on 12/19/23 10:10 UA Ketone Negative Last Edit by Rafaela Jonas on 12/19/23 10:10 UA Bilirubin 0 mg/dL Last Edit by Rafaela Jonas on 12/19/23 10:10 UA Glucose 0 mg/dL Last Edit by Rafaela Jonas on 12/19/23 10:10 Assessment & Plan Assessment & Plan (1) Erectile dysfunction: Code(s): N52.9 - Male erectile dysfunction, unspecified Category: Medical Plan In office urinalysis results reviewed with the patient today; as noted above. Discussed at length potential causes for erectile dysfunction. Discussed further treatment options at length. Recent PSA results reviewed with the patient today. Start 5 mg of Cialis daily. Continue p.r.n. Viagra on demand Discussed at length lifestyle modifications to assist with erectile dysfunction. Patient currently denies any bothersome urinary issues or concerns. Patient reports be happy with current voiding parameters. Follow-up in 3 months with lab to be completed prior; or sooner with any issues, concerns, and or questions. Orders: Orders AMB Urinalysis Automated Today Z13.9 - Encounter for screening, unspecified Medications: New tadalafil (Cialis) [id number] [facility] [place] 2[place] [id number] Member [id number] 5 mg PO DAILY 90 days 90 tabs 1RF Patient Instructions: The patient had an opportunity to ask questions regarding the treatment plan. All questions were answered. Physical exam, labs, and imaging were discussed and reviewed in detail. As well as risks, benefits, and discussion of treatment choices. No major barriers to understanding were identified. The patient expressed understanding and agreement with the above treatment plan. The patient was made aware they should contact our office by phone for worsening of their current condition, the appearance of new symptoms, or with any questions or concerns. Compliance is encouraged with any medications and follow up testing that is ordered. It is a privilege to be allowed the opportunity to participate in? your urological care.? Again, if you have any questions or concerns If you have any questions or concerns please do not hesitate to contact me. The office is [phone]. This note is constructed using voice recognition software. While every effort has been made to ensure accuracy cognos consultant errors may have been included. Yours sincerely, NINA Rojo Coding Level of Care Code Est Pt Level 4 (54187) Diagnoses Erectile dysfunction N52.9
== END 2023-12-19 10:27 | disposition home or self-care (01) ==
PROVIDERS: PCP Student in an Organized Health Care Education/Training Program; Visit Provider Nurse Practitioner Family
DX: Z13.9 Encounter for screening, unspecified (principal); N52.9 Male erectile dysfunction, unspecified
CPT/HCPCS: 99214

== ENCOUNTER → 2023-12-19 09:48 | Outpatient (BNVA) | payer OTHER, MEDICARE, SELFPAY | PROVIDERS: PCP Student in an Organized Health Care Education/Training Program; Visit Provider Nurse Practitioner Family | DX: N52.9 Male erectile dysfunction, unspecified (principal) | CPT/HCPCS: 81003 ==

== ENCOUNTER 2024-11-27 08:00 | Outpatient (REF) | payer OTHER, MEDICARE, SELFPAY ==
--- OUTSIDE RECORDS SUMMARY | 2024-11-27 08:03 | XMS_ITS | Clinical Summary ---
Author Organization [employer] Address [address] [facility] [address] [place] [address] Care Team Providers Care Research Computing Specialist Name Role Phone Tessy Shankar MD Primary Care Provider [phone] Allergies No known active allergies Medications * This document contains information received from the source organization and may not represent a complete record from that organization. cyclobenzaprine (Flexeril) 10 MG tablet TAKE 1 TABLET BY MOUTH THREE TIMES A DAY FOR 10 DAYS 30 tablet 03/03/20 24 Active lisinopril 20 MG tabletIndicatio ns:Primary hypertension TAKE ONE TABLET EVERY MORNING 30 tablet 2 05/29/19 25 Active tadalafil (Cialis) 20 MG tablet Take 1 tablet (20 mg) by mouth if needed each day for erectile dysfunction. 10 tablet 3 07/08/19 25 Active albuterol (ProAir HFA) 108 (90 Base) MCG/ACT inhalerIndicati ons:Viral upper respiratory tract infection INHALE 2 PUFFS BY MOUTH EVERY 4 HOURS IF NEEDED FOR WHEEZING 18 g 2 07/08/19 25 Active azelastine (Astelin) 0.1 % nasal spray Administer 1 spray into each nostril 2 times daily. Use in each nostril as directed 30 mL 12 07/08/19 25 026 Active cetirizine (ZyrTEC) 10 MG tablet Take 1 tablet (10 mg) by mouth Once per day. 30 tablet 11 07/08/19 25 026 Active simvastatin (Zocor) 40 MG tablet Take 1 tablet (40 mg) by mouth at bedtime. 90 tablet 3 11/27/19 25 026 Active Misc. Devices (Pulse Oximeter For Finger) miscIndications :COVID-19 To use every 4 hours. Call the office if O2 Sat < 90% 1 each 06/20/19 24 025 Discontinued simvastatin (Zocor) 40 MG tablet Take 1 tablet (40 mg) by mouth at bedtime. 90 tablet 3 07/11/19 24 025 Discontinued(R eorder (will not trigger notification to Pharmacy)) Active Problems Problem Noted Date Diagnosed Date Alcohol abuse 05/30/2023 Elevated alkaline phosphatase level 05/30/2023 Overview (05/30/2023): Labs ordered .Pt has been sober since 6mnths Chronic right shoulder pain 05/30/2023 Overview (05/30/2023): MRI ordered as per pt request Shoulder injection discussed Erectile dysfunction 05/30/2023 Overview (05/30/2023): Labs ordered Seamus has not been helping Primary hypertension 03/12/2023 Midline low back pain without sciatica 8 Injury of head 11/07/2017 Thoracic back pain 11/07/2017 Bipolar disorder 09/14/2011 Insomnia 09/14/2011 Palpitations 09/14/2011 Pain in limb 09/14/2011 Encounters Date Type Department Care Team Description 11/26/2024 2:30 PM EDT Office Visit [facility] [address], [place] [phone] Tessy Shankar MD Primary hypertension (Primary Dx); Bilateral tinnitus 11/26/2024 Travel 11/25/2024 Telephone [facility] [address], [place] [phone] Tessy Shankar MD Appointment Request 11/24/2024 Telephone [facility] [address] [place] [phone] Tessy Shankar MD No Show from Last 3 Months Immunizations Immunization Administration Dates Next Due Moderna Covid-19 Vaccine 12+ 05/18/2021 Tdap 07/03/2018 Social History Tobacco Use Types Packs/Day Years Used Date Smoking Tobacco: Never Passive Smoke Exposure: Never Smokeless Tobacco: Never Tobacco Cessation:Counseling Given: Not Answered Alcohol Use Standard Drinks/Week Comments Yes 35 (1 standard drink = 0.6 oz pure alcohol) 20 Beers and 10-15 shots in 2 days Alcohol Answer Date Recorded How often do you have a drink containing alcohol ? 4 06/12/2024 How many drinks containing a lcohol do you have on a typical day when you are drinking? 2 06/12/2024 How often do you have six or more drinks on one occasion? 3 06/12/2024 Depression Answer Date Recorded Patient Health Questionnaire-9 Score 0 06/12/2024 Patient Health Questionnaire-9 Score 0 06/12/2024 Last PHQ-9: Questionnaire Data Not on file 0 06/12/2024 Housing Stability Answer Date Recorded What is your housing situation today? I have isabella avelar 03/12/[address] you li ve. Do you have problems with any of the following? None of the above 03/12/2023 Food Insecurity Answer Date Recorded Within the past 12 months, y ou worried that your food would run out before you got money to buy more: Never True 03/12/2023 Within the past 12 months,th e food you bought just didn't last and you didn't have enough money to get more: Never True Transportation Answer Date Recorded In the past 12 months, has l ack of transportation kept you from medical appts, meetings, work or from getting things needed for daily living? No 03/12/2023 Utilities Answer Date Recorded In the past 12 months, has t he electric, gas, oil or water company threatened to shut off services in your home? Yes 03/04/2023 Depression Answer Date Recorded Patient Health Questionnaire-2 Score 0 06/12/2024 Sex and Gender Information Value Date Recorded Sex Assigned at Male 03/27/2022 10:22 AM EDT Legal Sex Male 10:22 AM EDT Gender Identity Male 03/27/2022 10:22 AM EDT Sexual Orientation Straight 03/27/2022 10 :22 AM EDT Last Filed Vital Signs Vital Sign Reading Time Taken Comments Blood Pressure 124/72 11/26/2024 2:43 PM EDT Pulse 78 11/26/2024 2:43 PM EDT Temperature 36.8 C (98.3 F) 11/26/2024 2:43 PM EDT Respiratory Rate 20 11/26/2024 2:43 PM EDT Oxygen Saturation 97% 07/08/2024 1:18 PM EST Inhaled Oxygen Concentration - - Weight 85.3 kg (188 lb) 11/26/2024 2:43 PM EDT Height 170.2 cm (5' 7 ) 11/26/2024 2:43 PM EDT Body Mass Index 29.44 11/26/2024 2:43 PM EDT Plan of Treatment Upcoming Encounters Date Type Department Care Team (Late st Contact Info) Description 01/07/2025 8:45 AM EDT Office Visit [facility] [address] [place] [address] Tessy Shankar MD [address] [place] [address] 01/07/2025 10:00 AM EDT Office Visit [facility] [address] [place] [address] Magdalene Infanet Health Maintenance Due Date Last Done Comments CT Colonography 1965 Colonoscopy 1965 Colorectal Cancer Screening 1965 FIT DNA/Cologuard 1965 FIT 1965 FOBT 1965 Sigmoidoscopy 1965 Disability Screening 1965 Hepatitis B Vaccines (1 of 3 - 19+ 3-dose series) 1984 Pneumococcal Vaccine: 50+ Years (1 of 2 - PCV) 1984 Zoster Vaccines (1 of 2) 09/05/2015 SDOH Screening 11/16/2023 11/15/2022 COVID-19 Vaccine ( season) 2024 05/18/2021, 10/26/2020 Dental X-Ray: Full Mouth 01/04/2025 01/03/2022 Dental Oral Exam 01/07/2025 07/09/2024, 01/2022, 05/01/2017, Additional history exists Dental Prophylaxis 01/07/2025 07/09/2024, 0 11/12/2017, 05/01/2017, Additional history exists Influenza Vaccine (#1) 2025 Alcohol/Substance Use Screening 06/12/2025 06/12/2024 Depression Screening 06/12/2025 06/12/2024, 06/12/19 Tobacco Screening 07/09/2025 07/09/2024 Dental X-Ray: Bitewings 07/10/2025 07/09/19, 01/03/2022, 05/01/2017 DTaP/Tdap/Td Vaccines (2 - Td or Tdap) 07/03/2028 07/03/2018 Lipid Panel 12/04/2028 12/05/2023, 03/28/2023 RSV Patients and Patients Aged 60 years or older (1 - 1-dose 75+ series) 2040 HIV Screening Completed 11/15/2022 Hepatitis C Screening Completed 12/05/2023 , 11/15/2022, 05/19/2019 HIB Vaccines Aged Out No longer eligi ble based on patient's age to complete this topic HPV Vaccines Aged Out No longer eligi ble based on patient's age to complete this topic Hepatitis A Vaccines Aged Out No long er eligible based on patient's age to complete this topic IPV Vaccines Aged Out No longer eligi ble based on patient's age to complete this topic Meningococcal B Vaccine Aged Out No l onger eligible based on patient's age to complete this topic Meningococcal Vaccine Aged Out No megan ankit eligible based on patient's age to complete this topic RSV under 20 months Aged Out No longe r eligible based on patient's age to complete this topic Rotavirus Vaccines Aged Out No longer eligible based on patient's age to complete this topic Procedures Procedure Name Priority Date/Time Associated Diagnosis Comments PROPHYLAXIS - ADULT Routine 07/09/2024 1 1:00 AM EST BITEWINGS - 4 RADIOGRAPHIC IMAGES Routine 07/09/2024 11:00 AM EST PERIODIC ORAL EVALUATION - ESTABLISHED PATIENT Routine 07/09/2024 11:00 AM EST HEPATITIS C AB W/REFL TO HCV RNA, QN, PCR Routine 12/05/2023 7:17 AM EDT Elevated alkaline phosphatase level LIPID PANEL, STANDARD Routine 12/05/2023 7:17 AM EDT Elevated alkaline phosphatase level HIV 1/2 ANTIGEN/ANTIBODY, FOURTH GENERATION W/RFL Routine 11/15/2022 2:49 PM EDT Alcohol use disorder, severe, dependence (CMS/HCC) INTRAORAL - COMPLETE SERIES OF RADIOGRAPHIC IMAGES Routine 01/03/2022 12:00 AM EDT from Last 3 Months or Most Recently Relevant to Health Maintenance Results * Hepatitis C Antibody with Reflex to HCV, RNA, Quantitative, Real-Time PCR (12/05/2023 7:17 AM EDT) Hepatitis C Antibody Nonreactive Nonreactive [facility] Comment:Antibodies to HCV no t detected; does not exclude early acuteHCV infection. Blood Venous blood specimen / Unknown 12/05/2023 7:17 AM EDT 12/05/2023 7:17 AM EDT us Tessy Shankar MD LAB BLOOD ORDERABLES Final Resul t [facility] [address] [place] [phone] * (ABNORMAL) Lipid Panel, Standard (12/05/2023 7:17 AM EDT) Triglycerides 155(H) <150 mg/dL [facility] Comment:Desirable Triglyceri de: less than 150 mg/dLBorderline High Triglyceride 150-199 mg/dLHigh Triglyceride: 200-499 mg/dLVery High Triglyceride: greater than or equal to 5OO mg/dL Cholesterol 178 <200 mg/dL [facility] Comment:Desirable Cholestero l: less than 200 mg/dLBorderline High Cholesterol: 200-239 mg/dLHigh Cholesterol: greater than 239 mg/dL LDL Cholesterol Calculated 112(H) <100 mg/dL [facility] Comment:Desirable LDL: less than 100 mg/dLNear Optimal/Above Optimal LDL: 110- 129 mg/dLBorderline High LDL: 130-159 mg/dLHigh LDL: 160-189 mg/dLVery High LDL: greater than or equal to 190 mg/dL HDL Cholesterol 35(L) >40 mg/dL [facility] Comment:Desirable HDL: great er than 40 mg/dL Note: This HDL assay may give artificially low results in patients with liver disease. Blood Venous blood specimen / Unknown 12/05/2023 7:17 AM EDT 12/05/2023 7:17 AM EDT Tessy Shankar MD LAB BLOOD ORDERABLES Final Resul t Performing Organization Address City/[facility]/ZIP Co de Phone Number [facility] [address] [place] [phone] * HIV-1/2 Antigen and Antibodies, Fourth Generation, with Reflexes (11/15/2022 2:49 PM EDT) Pathologist [facility] HIV Antigen/Antibody, 4th Generation NON-REAC TIVE NON-REAC TIVE [facility] [place] [facility] Comment: HIV-1 antigen and HIV-1/HIV-2 antibodies were not detected. There is no laboratory evidence of HIV infection. PLEASE NOTE: This information has been disclosed to you from records whose confidentiality may be protected by state law. If your state requires such protection, then the state law prohibits you from making any further disclosure of the information without the specific written consent of the person to whom it pertains, or as otherwise permitted by law. A general authorization for the release of medical or other information is NOT sufficient for this purpose. For additional information please refer to http://education.Hax[employer].com.AB Tasty/faq/JOO897 (This link is being provided for informational/ educational purposes only.) The performance of this assay has not been clinically validated in patients less than 2 years old. Blood Venous blood specimen / Unknown 11/15/2022 2:49 PM EDT 11/15/2022 2:50 PM EDT Narrative [facility] - 11/22/2022 6:17 AM EDT FASTING:NO FASTING: NO Dharmesh Lott MD LAB BLOOD ORDERABLES Final Resul t [facility] [address] [place] [address] [facility] [place] [facility] [address] [place] [phone] from Last 3 Months or Most Recently Relevant to Health Maintenance Insurance [id number] UNICARE MEDICARE DENTAL - [employer] C/O [employer] Care Teams Research Computing Specialist Relationship Specialty Start Date End Date Tessy Shankar MD [address] [place] [phone] PCP - General Family Medicine 06/26/13
--- OUTSIDE RECORDS SUMMARY | 2024-11-27 08:03 | XMS_ITS | Clinical Summary ---
Author Organization [facility] Address [address] [place] [phone] Phone Care Team Providers Care Block Mechanic Name Role Phone Physician, No Pcp Primary Care Provider Unavaila ble Allergies No known active allergies Medications methocarbamoL (ROBAXIN) 500 mg tablet Take 1 tablet (500 mg total) by mouth 3 (three) times a day for 5 days. 15 tablet 06/25/2024 Active Surgical History Surgery Date Site/Laterality Comments ESOPHAGOGASTRODUODENOSCOPY 09/26/2006 PROCEDURE: [place] ESOPHAGOGASTRODUODENOSCOPY TRANSORAL DIAGNOSTIC; COMMENT: Normal examination Medical History Medical History Date Comments Unspecified asthma(493.90) DX:Un specified asthma(493.90) Bipolar disorder, unspecifie d ([facility] V24, [facility] V28) DX:Bipolar disorder, unspeci fied ([facility]) Other chest pain 09/26/2006 DX:Other chest pain; COMMENT: normal upper GI endoscopy 09/26/2006 History of suicide attempt 1994 DX:Nd story of suicide attempt; COMMENT: hospitalized Family History Medical History Relation Name Comments Diabetes Father Heart attack Father @ age 55 Hypertension Father Diabetes Mother Other cancer Mother pancre atic cancer Relation Name Status Comments Father Mother Social History Tobacco Use Types Packs/Day Years Used Date Smoking Tobacco: Never Alcohol Use Standard Drinks/Week Comments Yes 0 (1 standard drink = 0.6 oz pur e alcohol) Sex and Gender Information Value Date Recorded Sex Assigned at Male 06/25/2024 1:57 PM EST Legal Sex Male 11:39 AM EST Gender Identity Male 06/25/2024 1:57 PM EST Sexual Orientation Straight 06/25/2024 1: 57 PM EST Obstetrics History Last Filed Vital Signs Vital Sign Reading Time Taken Comments Blood Pressure 129/97 06/28/2024 9:50 AM EST Pulse 78 06/28/2024 9:50 AM EST Temperature 36.7 C (98.1 F) 06/28/2024 9:50 AM EST Respiratory Rate 20 06/28/2024 9:50 AM EST Oxygen Saturation 96% 06/28/2024 9:50 AM EST Inhaled Oxygen Concentration - - Weight 84.4 kg (186 lb) 06/28/2024 9:50 AM EST Height 180.3 cm (5' 11 ) 06/28/2024 9:50 AM EST Body Mass Index 25.94 06/28/2024 9:50 AM EST Plan of Treatment Health Maintenance Due Date Last Done Comments Hepatitis A Vaccines (1 of 2 - Risk 2-dose series) 1984 Hepatitis B Vaccines (1 of 3 - 19+ 3-dose series) 1984 Pneumococcal Vaccine: 50+ Years (1 of 2 - PCV) 1984 Pneumococcal Vaccine: Pediatrics (0 to 5 Years) and At-Risk Patients (6 to 64 Years) (1 of 2 - PCV) 1984 Zoster Vaccines (1 of 2) 09/05/2015 COVID-19 Vaccine (2023-2 5 season) 2024 05/18/2021, 10/26/2020 Colorectal Cancer Screening: Colonoscopy 03/06/2024 Medicare Annual Wellness Visit 03/06/2024 Social Influencers of Health Screening 03/06/2024 Influenza Vaccine (#1) 2025 Hypertension/CHF/CAD Annual BMP Blood Test 05/20/2025 05/20/2024 Depression Screening 06/12/2025 06/12/2024 DTaP,Tdap,and Td Vaccines (2 - Td or Tdap) 07/03/2028 07/03/2018 Cholesterol Screening (Lipid Panel) 12/04/2028 12/05/2023 RSV Immunization Adult Patients (1 - 1-dose 75+ series) 2040 HIV Screening Completed 11/15/2022 Hepatitis C Screening Completed 12/05/2023 HIB Vaccines Aged Out No longer eligi ble based on patient's age to complete this topic HPV Vaccines Aged Out No longer eligi ble based on patient's age to complete this topic IPV Vaccines Aged Out No longer eligi ble based on patient's age to complete this topic MMR Vaccines Aged Out No longer eligi ble based on patient's age to complete this topic Meningococcal ACWY Vaccine Aged Out N o longer eligible based on patient's age to complete this topic Meningococcal B Vaccine Aged Out No l onger eligible based on patient's age to complete this topic RSV Immunization Patients Under 20 months Aged Out No longer eligible b ased on patient's age to complete this topic Varicella Vaccines Aged Out No longer eligible based on patient's age to complete this topic Procedures Procedure Name Priority Date/Time Associated Diagnosis Comments COMPREHENSIVE METABOLIC PANEL STAT 05/20/2024 1:00 PM EST from Last 3 Months or Most Recently Relevant to Health Maintenance Results * (ABNORMAL) Comprehensive metabolic panel (05/20/2024 1:00 PM EST) Sodium 134 133 - 145 mmol/L LAB CHEMISTRY METHOD 05/20/2024 1:50 PM [facility] Potassium 3.9 3.5 - 5.5 mmol/L LAB CHEMISTRY METHOD 05/20/2024 1:50 PM [facility] Chloride 102 96 - 110 mmol/L LAB CHEMISTRY METHOD 05/20/2024 1:50 PM [facility] CO2 24 21 - 32 mmol/L LAB CHEMISTRY METHOD 05/20/2024 1:50 PM [facility] Anion Gap 8 3 - 11 LAB CHEMISTRY METHOD 05/20/2024 1:50 PM [facility] Glucose 111(H) 70 - 100 mg/dL LAB CHEMISTRY METHOD 05/20/2024 1:50 PM [facility] BUN 13 5 - 25 mg/dL LAB CHEMISTRY METHOD 05/20/2024 1:50 PM [facility] Creatinine 1.00 0.70 - 1.30 mg/dL LAB CHEMISTRY METHOD 05/20/2024 1:50 PM [facility] eGFR 87 >=60 mL/min/1. 73m2 LAB CHEMISTRY METHOD 05/20/2024 1:50 PM [facility] Comment:Calculation based on the Chronic Kidney Disease Epidemiology Collaboration (CKD-EPI) equation refit without adjustment for race. BUN/Creatinine Ratio 13.0 LAB CHEMISTRY METHOD 05/20/2024 1:50 PM [facility] Calcium 9.5 8.5 - 10.5 mg/dL LAB CHEMISTRY METHOD 05/20/2024 1:50 PM [facility] AST (SGOT) 78(H) 10 - 42 unit/L LAB CHEMISTRY METHOD 05/20/2024 1:50 PM [facility] ALT (SGPT) 110(H) 10 - 60 unit/L LAB CHEMISTRY METHOD 05/20/2024 1:50 PM [facility] Alkaline Phosphatase 43 42 - 121 unit/L LAB CHEMISTRY METHOD 05/20/2024 1:50 PM [facility] Total Protein 7.1 6.0 - 8.0 g/dL LAB CHEMISTRY METHOD 05/20/2024 1:50 PM [facility] Albumin 4.0 3.2 - 5.0 g/dL LAB CHEMISTRY METHOD 05/20/2024 1:50 PM [facility] Total Bilirubin 1.3 0.0 - 1.4 mg/dL LAB CHEMISTRY METHOD 05/20/2024 1:50 PM [facility] Blood Venous blood specimen / Unknown Venipuncture / Unknown 05/20/2024 1:00 PM EST 05/20/2024 1:14 PM EST us Félix Dominguez MD LAB BLOOD ORDERABLES Lakisha ulrich Result [facility] [address] [place] [address], [place] [phone] from Last 3 Months or Most Recently Relevant to Health Maintenance Insurance MEDICARE [facility] Care Teams Block Mechanic Relationship Specialty Start Date End Date Physician, No Pcp PCP - General 05/20/24
[2024-11-27 15:35] LABS: Alanine Aminotransferase 42 U/L (0-40); Albumin Level 4.5 g/dL (3.5-5.0); Alkaline Phosphatase 39 U/L (39-117); Anion Gap 11 (12-20); Aspartate Amino Transferase 34 U/L (5-37); Blood Urea Nitrogen 13 mg/dL (9-16); Calcium 9.3 mg/dL (8.4-10.2); Carbon Dioxide 25 mmol/L (22-29); Chloride 107 mmol/L (96-108); Cholesterol 163 mg/dL (<200); Estimated Glomerular Filt Rate > 60; HDL Cholesterol 32 mg/dL (>40); Potassium 4.3 mmol/L (3.3-5.1); Sodium 139 mmol/L (135-145); Total Protein 7.2 g/dL (6.5-8.0); Triglycerides 164 mg/dL (<150)
== END 2024-11-27 08:01 | disposition home or self-care (01) ==
LOC: HO.CHCLDS 08:00
PROVIDERS: Visit Provider Student in an Organized Health Care Education/Training Program
DX: I10 Essential (primary) hypertension (principal)
CPT/HCPCS: 36415; 80048; 80061; 80076

== ENCOUNTER 2025-01-12 18:28 | Outpatient (REF) | payer OTHER, MEDICARE, SELFPAY ==
--- OUTSIDE RECORDS SUMMARY | 2025-01-12 18:30 | XMS_ITS | Clinical Summary ---
Author Organization [facility] Address [address] [place] [phone] Phone Care Team Providers Care Flight Crew Scheduler Name Role Phone Physician, No Pcp Primary Care Provider Unavaila ble Allergies No known active allergies Medications methocarbamoL (ROBAXIN) 500 mg tablet Take 1 tablet (500 mg total) by mouth 3 (three) times a day for 5 days. 15 tablet 06/25/2024 Active Surgical History Surgery Date Site/Laterality Comments ESOPHAGOGASTRODUODENOSCOPY 09/26/2006 PROCEDURE: [place] ESOPHAGOGASTRODUODENOSCOPY TRANSORAL DIAGNOSTIC; COMMENT: Normal examination Medical History Medical History Date Comments Unspecified asthma(493.90) DX:Un specified asthma(493.90) Bipolar disorder, unspecifie d ([facility] V24, [facility] V28) DX:Bipolar disorder, unspeci fied ([facility]) Other chest pain 09/26/2006 DX:Other chest pain; COMMENT: normal upper GI endoscopy 09/26/2006 History of suicide attempt 1994 DX:De story of suicide attempt; COMMENT: hospitalized Family [...] Vaccines (1 of 2) 09/05/2015 COVID-19 Vaccine ( - 2023-2 5 season) 2024 05/18/2021, 10/26/2020 Colorectal Cancer Screening: Colonoscopy 03/06/2024 Medicare Annual Wellness Visit 03/06/2024 Social Influencers of Health Screening 03/06/2024 Depression Screening 05/28/2024 Influenza Vaccine (#1) 2025 Hypertension/CHF/CAD Annual BMP Blood Test 05/20/2025 05/20/2024 DTaP,Tdap,and Td Vaccines (2 - Td or [...] mmol/L LAB CHEMISTRY METHOD 05/20/2024 1:50 PM [facility] Potassium 3.9 3.5 - 5.5 mmol/L LAB CHEMISTRY METHOD 05/20/2024 1:50 PM [facility] Chloride 102 96 - 110 mmol/L LAB CHEMISTRY METHOD 05/20/2024 1:50 PM [facility] CO2 24 21 - 32 mmol/L LAB CHEMISTRY METHOD 05/20/2024 1:50 PM [facility] Anion Gap 8 3 - 11 LAB CHEMISTRY METHOD 05/20/2024 1:50 PM [facility] Glucose 111(H) 70 - 100 mg/dL LAB CHEMISTRY METHOD 05/20/2024 1:50 PM [facility] BUN 13 5 - 25 mg/dL LAB CHEMISTRY METHOD 05/20/2024 1:50 PM [facility] Creatinine 1.00 0.70 - 1.30 mg/dL LAB CHEMISTRY METHOD 05/20/2024 1:50 PM [facility] eGFR 87 >=60 mL/min/1. 73m2 LAB CHEMISTRY METHOD 05/20/2024 1:50 PM [facility] Comment:Calculation based on the Chronic Kidney Disease Epidemiology Collaboration (CKD-EPI) equation refit without adjustment for race. BUN/Creatinine Ratio 13.0 LAB CHEMISTRY METHOD 05/20/2024 1:50 PM [facility] Calcium 9.5 8.5 - 10.5 mg/dL LAB CHEMISTRY METHOD 05/20/2024 1:50 PM [facility] AST (SGOT) 78(H) 10 - 42 unit/L LAB CHEMISTRY METHOD 05/20/2024 1:50 PM [facility] ALT (SGPT) 110(H) 10 - 60 unit/L LAB CHEMISTRY METHOD 05/20/2024 1:50 PM [facility] Alkaline Phosphatase 43 42 - 121 unit/L LAB CHEMISTRY METHOD 05/20/2024 1:50 PM [facility] Total Protein 7.1 6.0 - 8.0 g/dL LAB CHEMISTRY METHOD 05/20/2024 1:50 PM [facility] Albumin 4.0 3.2 - 5.0 g/dL LAB CHEMISTRY METHOD 05/20/2024 1:50 PM [facility] Total Bilirubin 1.3 0.0 - 1.4 mg/dL LAB CHEMISTRY METHOD 05/20/2024 1:50 PM [facility] Blood Venous blood specimen / Unknown Venipuncture / Unknown 05/20/2024 1:00 PM EST 05/20/2024 1:14 PM EST us Félix Dominguez MD LAB BLOOD ORDERABLES Lakisha l Result [facility] [address] [place] [address], from Last 3 Months or Most Recently Relevant to Health Maintenance Insurance MEDICARE [facility] Address: [address] [address] [place] [address] MEDICARE [employer] Care Teams Flight Crew Scheduler Relationship Specialty Start Date End Date Physician, No Pcp PCP - General 05/20/24
== END 2025-01-12 18:29 | disposition home or self-care (01) ==
LOC: HO.CHCLNP 18:28
PROVIDERS: Visit Provider Registered Nurse
DX: R39.9 Unspecified symptoms and signs involving the genitourinary system (principal)
CPT/HCPCS: 87086